=== PATIENT | female | born 1950 ===

== ENCOUNTER 2019-05-04 21:51 | Outpatient (REF) | payer OTHER, SELFPAY ==
[2019-05-04 22:05] LABS: Abs Immature Grans 0.04 k/cumm (0.0-0.09); Absolute Basophil Count 0.02 k/cumm (0.0-0.2); Absolute Monocyte Count 0.84 k/cumm (0.11-0.7); Absolute Neutrophil Count 4.48 k/cumm (1.2-6.7); Basophils % 0.3; Eosinophils % 3.8; HCT 29.2 % (36.0-46.0); HGB 8.9 g/dL (12.0-15.5); Immature Grans % 0.5; Lymphocytes % 28.8; Mean Corp. HGB Concentration 30.5 g/dL (32.0-36.0); Mean Corpuscular Hemoglobin 24.6 pg (27.0-33.0); Mean Corpuscular Volume 80.7 fL (80-95); Mean Platelet Volume 10.6 fL (8.0-11.0); Monocytes % 10.5; Neutrophils % 56.1; Platelet Count 248 x1000/uL (130-400); RBC 3.62 m/cumm (4.00-5.20); RBC Distribution Width 15.2 % (11.7-14.6); White Blood Cell Count 7.98 k/cumm (4.4-10.8)
[2019-05-04 22:31] LABS: Diff Comment RBC Morph Reviewed; Microcytosis 1+
[2019-05-04 22:36] LABS: Albumin 2.8 g/dL (3.4-5.0); Anion Gap 7.3 mmol/L (3-11); BUN 30 mg/dL (7-18); CO2 27.7 mmol/L (21.0-32.0); CREATININE 1.17 mg/dL (0.55-1.02); Calcium 7.8 mg/dL (8.5-10.1); Chloride 98 mmol/L (98-107); Estimated GFR 46.28 (mL/min/1.73m2); Glucose 84 mg/dL (70-100); Potassium 4.8 mmol/L (3.5-5.1); Sodium 133 mmol/L (136-145)
[2019-05-08 12:06] LABS: Prealbumin 17 mg/dL (20-40)
== END 2019-05-04 22:11 ==
LOC: LBN 21:51
PROVIDERS: Visit Provider Student in an Organized Health Care Education/Training Program
DX: T81.49XD Infection following a procedure, other surgical site, subsequent encounter (principal); M65.071 Abscess of tendon sheath, right ankle and foot
CPT/HCPCS: 80048; 82040; 84134; 85025

== ENCOUNTER 2019-10-20 01:45 | Outpatient (REF) | payer OTHER, SELFPAY ==
[2019-10-20 21:20] LABS: Ferritin 9 ng/mL (8-252)
[2019-10-20 21:51] LABS: Abs Immature Grans 0.02 k/cumm (0.0-0.09); Absolute Basophil Count 0.03 k/cumm (0.0-0.2); Absolute Eosinophil Count 0.28 k/cumm (0.0-0.7); Absolute Lymphocyte Count 1.84 k/cumm (1.2-3.4); Absolute Monocyte Count 0.55 k/cumm (0.11-0.7); Absolute Neutrophil Count 4.11 k/cumm (1.2-6.7); Basophils % 0.4; Eosinophils % 4.1; HCT 28.8 % (36.0-46.0); Immature Grans % 0.3 %; Lymphocytes % 26.9; Mean Corp. HGB Concentration 27.8 g/dL (32.0-36.0); Mean Corpuscular Hemoglobin 20.2 pg (27.0-33.0); Mean Corpuscular Volume 72.7 fL (80-95); Mean Platelet Volume 10.6 fL (8.0-11.0); Monocytes % 8.1; Neutrophils % 60.2; Platelet Count 444 x1000/uL (130-400); RBC 3.96 m/cumm (4.00-5.20); RBC Distribution Width 19.3 % (11.7-14.6); White Blood Cell Count 6.83 k/cumm (4.4-10.8)
[2019-10-20 22:53] LABS: Diff Comment RBC Morph Reviewed
[2019-10-20 22:54] LABS: Anisocytosis 3+; Microcytosis 3+
[2019-10-20 22:55] LABS: Hypochromasia 1+
== END 2019-10-20 02:05 ==
LOC: NCHCN 01:45
PROVIDERS: PCP Student in an Organized Health Care Education/Training Program; Visit Provider Student in an Organized Health Care Education/Training Program
DX: D64.9 Anemia, unspecified (principal)
CPT/HCPCS: 82728; 85025